=== PATIENT | male | born 1980 | race Caucasian/White ===

== ENCOUNTER 2017-03-05 04:14 | Emergency (ER) | payer BC, OTHER ==
[~2017-03-05] VITALS: Ht 188 cm; Wt 86.2 kg
[2017-03-05 04:15] VITALS: BP 147/90
[2017-03-05] MEDS ORDERED: DIOVAN 80 MG TA80 M1 PO (04:20)
== END 2017-03-05 05:00 | disposition home or self-care (01) ==
LOC: ER 04:14
DX: S01.01XA Laceration without foreign body of scalp, initial encounter (principal); I10 Essential (primary) hypertension; W22.8XXA Striking against or struck by other objects, initial encounter; Y93.89 Activity, other specified; Y92.89 Other specified places as the place of occurrence of the external cause; Y99.8 Other external cause status